=== PATIENT | male | born 1965 | race Caucasian/White ===

== ENCOUNTER 2018-08-31 10:49 | Outpatient (CLI) | payer OTHER, SELFPAY ==
--- NOTE | 2018-08-31 10:00 | DI.RAD_ITS ---
SYMPTOMS/DIAGNOSIS: H/O PULMONARY NODULE IN 2010 W/O FURTHER FOLLOW UP, Z87.898 PA AND LATERAL CHEST: No priors for comparison. The heart is normal in size. The lungs are clear. The mediastinal structures and pleura appear intact. CONCLUSION: Normal chest.
== END 2018-08-31 11:09 ==
PROVIDERS: PCP Family Medicine; Visit Provider Family Medicine
DX: R91.1 Solitary pulmonary nodule (principal); Z87.09 Personal history of other diseases of the respiratory system
CPT/HCPCS: 71046

== ENCOUNTER 2019-01-25 06:19 | Day surgery (SDC) | payer OTHER, SELFPAY ==
--- NOTE | 2019-01-25 06:30 | W.PM.HP.N ---
Date of service: 01/25/19 Assessment and Plan (1) Encounter for screening colonoscopy: Current visit: No Status: Acute A\\ 53 year old male here for his first Screening Colonoscopy P\\ Colonoscopy under sedation Risks, benefits and complications have been reviewed. Complications include but are not limited to bleeding, pain, perforation, missed small lesion/polyp, sore throat, aspiration and adverse reaction to the medications. Questions were entertained and answered to their satisfaction and they wished to proceed. No guarantees were given or implied. History of Present Illness Chief Complaint: Colon Cancer Screening Narrative: 53 y/o male with history of CAD presents for his first colonoscopy screening pre-op. He denies a family history of colon cancer. He denies any changes in bowel habits including bloody or black tarry stools, abdominal pain, diarrhea or constipation. He denies constitutional symptoms. Denies use of marijuana or any other recreational or illegal drugs. He denies chest pain, palpitations, dyspnea or dyspnea with exertion. He denies prior history or family history of adverse reactions or complications with anesthesia. History of MD and 1 stent placed in 2010. He last follow up with Cardiology ~4 years ago at [facility]. He was seen by Cardiology here and was cleared for his Colonoscopy. See Cardiology noted. Review of Systems Cardiovascular Denies chest pain, Denies chest pain at rest, Denies chest pain with activity, Denies irregular heart rhythm, Denies dyspnea and Denies dyspnea on exertion Respiratory Denies dyspnea and Denies dyspnea on exertion [facility] Medical History Alcohol intake above recommended sensible limits (Acute) NSTEMI (non-ST elevated myocardial infarction) (Acute) Presence of stent in LAD coronary artery (Acute) Social History Smoking/Tobacco Use Status: Never Drug use: Never Substance use type: does not use Do you feel safe at home: Yes Do you feel safe in your relationship?: Yes Meds Home Medications Medication Instructions Recorded Confirmed Type rosuvastatin 5 mg tablet 5 mg PO DAILY 90 Days #90 tab-cap 03/10/18 01/20/19 Rx escitalopram oxalate 20 mg tablet 30 mg PO DAILY #135 tab 05/03/18 01/20/19 Rx bupropion HCl 75 mg tablet 75 mg PO BID #180 tab 05/28/18 01/20/19 Rx aspirin 81 mg tablet,delayed 81 mg PO DAILY #90 tab 08/31/18 01/20/19 Rx release Allergies Allergy/AdvReac Type Severity Reaction Status Date / Time atorvastatin [From Lipitor] AdvReac leg cramps Verified 01/25/19 06:35 Exam Const General: comfortable and no acute distress Orientation: alert and oriented x3 Resp Effort & Inspection: normal respiratory effort Auscultation: clear to auscultation bilaterally Cardio Rate: regular rate Rhythm: regular rhythm
--- NOTE | 2019-01-25 06:36 | W.COLOREPORT ---
Date of service: 01/25/19 Time of Service: : Colonoscopy Report Date of procedure: 01/25/19 Pre-op diagnosis general: Colon Cancer Screening Post-op diagnosis procedure note: other (rectal polyp and internal hemorrhoids) Procedure: Colonoscopy with polypectomy by snare Surgeon: Angela Jang Anesthesia proc note operative: other (General/ ASA 2/ Citlalli Mann, HERIBERTO) Estimated blood loss (mL): 3 Pathology: other (Rectal polyp) Complications: Other (Small <.5 cm polyp seen and then unable to find again for removal. ) Disposition: same day Indications: Mr. Delaney is a pleasant 53-year-old gentleman with a cardiac history who was seen in the office for his first screening colonoscopy. He was also seen by cardiology and was cleared. Risks, benefits and complications have been reviewed. Complications include but are not limited to bleeding, pain, perforation, missed small lesion/polyp, sore throat, aspiration and adverse reaction to the medications. Questions were entertained and answered to their satisfaction and they wished to proceed. No guarantees were given or implied. Prep: Miralax/Dulcolax Procedure Start Time: : Procedure End Time: 08:13 Retraction Time: 35 minutes Findings: One rectal polyp about 1 cm in size. Small,.5 cm sessile polyp in the transverse. Unable to find a second time to remove. Spend 20 minutes trying to find it without luck. Procedure Description: After informed consent was obtained the patient was taken to the procedure room and placed in a left decubitous position. Monitors were applied and a time out was done. The patients name, date of , procedure, allergies to medications and metal in their body was reviewed. The patient was then sedated. Once sedated and comfortable a rectal exam was done. External exam was normal. Internal exam revealed a normal sphincter tone and no palpable masses. The prostate felt smooth. The scope was then introduced and retro-flexed. Grade 1 internal hemorrhoids were identified. There were no masses or polyps on retro-flexion. The scope was then advanced to the cecum with some difficulty. The TI and appendiceal orifice were identified. The prep was adequate. The scope was then slowly retracted over 35 minutes back into the rectum. In the transverse a saw fleetingly a small <.5 cm polyp. By the time I was able to get the forceps through the instrument I could not find the polyp. I spend 20 minutes going back into the cecum and pulling back to the transverse colon, but I was unable to see it again. One Polyp was removed with cold snare in the rectum. The scope was removed and the patient was woken up and taken back to Same day surgery in stable condition. The patient tolerated the procedure well and there were no immediate complications. Follow up: The patient should follow up in 3 years unless they develop changes in bowel habits or other new gastrointestinal complaints.
--- NOTE | 2019-01-25 06:38 | W.PM.DSUDISC ---
Discharge Plan Disposition Patient Disposition: HOME Condition: Good Discharge Details Reason For Visit: Colon Cancer Screening Attending Provider: Angela Jang Primary Care Provider: Nash Peck Home Meds and New Rx's Prescriptions: Continued bupropion HCl 75 mg tablet 75 mg PO BID Qty: 180 RF: 3 aspirin [Adult Aspirin Regimen] 81 mg tablet,delayed release (DR/EC) 81 mg PO DAILY Qty: 90 RF: 0 rosuvastatin [Crestor] 5 mg tablet 5 mg PO DAILY 90 Days Qty: 90 RF: 3 escitalopram oxalate 20 mg tablet 30 mg PO DAILY Qty: 135 RF: 3 Discharge Instructions Instructions: Colonoscopy (GEN) Additional Instructions: Findings: Polyp Follow up: 3 years Please call if you develop: fevers >101.5 Nausea or Vomiting Abdominal pain that is not transient DAY SURGERY UNIT POST COLONOSCOPY INSTRUCTIONS 1. Because there will be medication in your system for the next 24 hours, you may feel a little sleepy. Your coordination will be affected. Therefore: a. Do not drive or operate dangerous equipment for 24 hours. b. Do not drink alcohol beverages for 24 hours (not even beer). c. Plan to go home and rest for the day. 2. Generally there are no restrictions on your activity after a day or so has gone by, but you may feel a bit fatigued for a few days. 3 After you arrive home you may have a light meal and return to a normal diet as you can tolerate it without feeling sick to your stomach. 4. After surgery, you may feel pain or discomfort. This should be only transient, but if it persists please contact your doctor. 5. If there are any questions regarding the findings of your procedure, please feel free to contact your doctor. 6. If you are unable to contact your doctor with a problem, contact the hospital at [phone]. 7. Continue all your regular medications unless directed otherwise. I understand the above instructions and have no questions. Signature of Patient or Responsible Adult Escort Date/Time Name of Responsible Adult Escort Signature of Nurse Date/Time Activity:: Activity as Tolerated Diet:: As Tolerated Discharge Orders Discharge Orders: Discharge Order (Routine); Ordered 01/25/19 Ordered By: Angela Jang DS: Diagnosis Discharge Diagnosis (1) S/P colonoscopy: (2) Colorectal polyps:
[2019-01-25 06:39] VITALS: BP 142/98; PULSE 72; RESP 18; TEMP 36.2; O2SAT 97
[2019-01-25] MEDS: Lactated Ringers 1,000 ML 80 ML IV (06:44)
--- NOTE | 2019-01-25 07:30 | BOWEL_PTH ---
PATIENT: Campbell Delaney LOC: [facility] U#:[id number] AGE/SX: 53/M ROOM: RE01/25/[address]: Angela Jang MD : 1965 BED: DIS: 01/25/2019 SPEC #: [id number] RECD: 01/25/19 12:59 STATUS: RAMSES REQ #: [id number] CORAL: 01/25/19 07:[address]: Angela Jang DEPT: Surgical Specimen RECD BY: Sasha Cabrera ENTERED: 01/25/19 13:00 SP TYPE: Bowel OTHR DR: Nash Peck MD Tissues: 1 - BIOPSY BOWEL Procedures: GROSS AND MICRO LEVEL 4 Comments: [id number]
[2019-01-25 09:00] VITALS: BP 136/83; PULSE 60; RESP 18; TEMP 36.1; O2SAT 100
== END 2019-01-25 09:50 | disposition home or self-care (01) ==
PROVIDERS: PCP Family Medicine; Visit Provider Surgery
PROC: 0DJD8ZZ Inspection of Lower Intestinal Tract, Via Natural or Artificial Opening Endoscopic (ICD-10-PCS; CPT 45378; principal; 2019-01-25 07:30)
DX: Z12.11 Encounter for screening for malignant neoplasm of colon (principal); D12.8 Benign neoplasm of rectum; K64.0 First degree hemorrhoids; D12.3 Benign neoplasm of transverse colon; I25.10 Atherosclerotic heart disease of native coronary artery without angina pectoris; I25.2 Old myocardial infarction; Z95.5 Presence of coronary angioplasty implant and graft
CPT/HCPCS: 45385; 88305; NC

== ENCOUNTER 2020-09-18 03:41 | Outpatient (CLI) | payer OTHER, SELFPAY ==
[2020-09-18 08:42] LABS: HGB 14.5 g/dL (13.5-17.5); MCH 31.3 pg (27.0-33.0); MCHC 33.7 % (32.0-36.0); MCV 92.9 fL (80-95); MPV 9.8 fL (8.0-11.0); Platelet Count 194 10^3/uL (130-400); RBC 4.63 10^6/uL (4.36-5.78); RDW 12.3 % (11.8-14.1); RDW-SD 42.4 fL; WBC 5.71 10^3/uL (4.4-10.8)
[2020-09-18 09:43] LABS: ALT 55 U/L (16-63); AST 21 U/L (15-37); Albumin 3.9 g/dL (3.4-5.0); Alkaline Phosphatase 69 U/L (46-116); Anion Gap 8.5 mmol/L (3-11); BUN 28 mg/dL (7-18); Bilirubin, Total 0.4 mg/dL (0.2-1.0); CO2 27.5 mmol/L (21.0-32.0); CREATININE 1.4 mg/dL (0.70-1.30); Calcium 8.8 mg/dL (8.5-10.1); Calculated LDL 107 mg/dL (<100); Chloride 105 mmol/L (98-107); Cholesterol 178 mg/dL (<200); Estimated GFR 52.42 (mL/min/1.73m2); Glucose 112 mg/dL (74-106); HDL Cholesterol 52 mg/dL (40-60); Potassium 4.7 mmol/L (3.5-5.1); Sodium 141 mmol/L (136-145); Total Protein 7.1 g/dL (6.4-8.2); Triglyceride 99 mg/dL (<150)
== END 2020-09-18 03:42 | disposition home or self-care (01) ==
LOC: LBO 03:41
PROVIDERS: PCP Family Medicine; Visit Provider Family Medicine
DX: Z00.00 Encounter for general adult medical examination without abnormal findings (principal); E78.5 Hyperlipidemia, unspecified; F32.9 Major depressive disorder, single episode, unspecified
CPT/HCPCS: 36415; 80053; 80061; 85027

== ENCOUNTER 2021-06-24 10:31 | Outpatient (CLI) | payer OTHER, SELFPAY ==
[2021-06-25 07:33] LABS: COVID-19 RT-PCR UVMMC Result Positive (Negative)
== END 2021-06-24 10:32 | disposition home or self-care (01) ==
LOC: LBO 10:31
PROVIDERS: PCP Nurse Practitioner Family; Visit Provider Nurse Practitioner Family
DX: Z20.822 Contact with and (suspected) exposure to COVID-19 (principal)
CPT/HCPCS: U0003

== ENCOUNTER 2022-08-27 11:28 | Outpatient (CLI) | payer OTHER, SELFPAY ==
--- NOTE | 2022-08-27 10:00 | DI.RAD_ITS ---
Exam(s) XR THUMB LT EXAM: XR THUMB LT CLINICAL HISTORY: Worsening pain over a year.,m79.645. TECHNIQUE: 2D digital imaging was performed. Three views. COMPARISON: None. FINDINGS: BONES: No acute fracture is present. No bony destructive lesion is seen. JOINTS: No dislocation present. Mild degenerative changes 1st carpometacarpal joint. SOFT TISSUE: Normal. IMPRESSION: Mild degenerative changes 1st carpal metacarpal joint. DATA REPOSITORY: RADIATION DOSE DELIVERED:
== END 2022-08-27 11:48 ==
PROVIDERS: PCP Nurse Practitioner Family; Visit Provider Nurse Practitioner Family
DX: M18.12 Unilateral primary osteoarthritis of first carpometacarpal joint, left hand (principal)
CPT/HCPCS: 73140

== ENCOUNTER 2023-03-18 09:56 | Outpatient (CLI) | payer OTHER, SELFPAY ==
[2023-03-18 13:15] LABS: Calculated LDL 121 mg/dL (<100); Cholesterol 207 mg/dL (<200); HDL Cholesterol 59 mg/dL (40-60); Triglyceride 136 mg/dL (<150)
[2023-03-18 15:39] LABS: ALT 59 U/L (16-63); AST 30 U/L (15-37); Alkaline Phosphatase 61 U/L (46-116); Bilirubin, Direct 0.2 mg/dL (0.0-0.2); Bilirubin, Total 0.5 mg/dL (0.2-1.0); Total Protein 7.5 g/dL (6.4-8.2)
== END 2023-03-18 09:57 | disposition home or self-care (01) ==
LOC: LOS 09:57
PROVIDERS: PCP Nurse Practitioner Family; Visit Provider Nurse Practitioner Family
DX: E78.5 Hyperlipidemia, unspecified (principal); E66.9 Obesity, unspecified
CPT/HCPCS: 36415; 80061; 80076